=== PATIENT | female | born 1940 | race Caucasian/White ===

== ENCOUNTER 2016-11-07 06:56 | Inpatient (IN) | payer MEDICARE ==
[~2016-11-07 06:56] MED LIST: IV START KIT ONE; LACTATED RINGERS 1,000 ML ONE
[2016-11-07] MEDS ORDERED: CLONIDINE HCL 0.1 MG/24 HR (7 DAY PATCH) TD SCH (07:00)
[2016-11-07] MEDS ORDERED: CEFAZOLIN SODIUM 2 GRAM PREMIX 100 ML IV PRN (07:00)
[2016-11-07] MEDS ORDERED: TRAMADOL HCL 50 MG TABLET PO ONE (07:00)
[2016-11-07] MEDS ORDERED: TRANEXAMIC ACID 1,000 MG in SODIUM CHLORIDE 0.9% 100 ML IV PRN (07:00)
[2016-11-07] MEDS ORDERED: OXYCODONE HCL 10 MG TAB.SR PO ONE ×2 (07:00→07:48)
[2016-11-07] MEDS ORDERED: ONDANSETRON 4 MG/2ML 2 ML VIAL IV ONE (07:00)
[2016-11-07] MEDS ORDERED: POLYMYXIN B SULFATE 500,000 UNITS, BACITRACIN 25,000 UNITS in SODIUM CHLORIDE 3 L IRRIG... IR PRN (07:00)
[2016-11-07] MEDS ORDERED: FAMOTIDINE 20 MG TABLET PO ONE (07:00)
[2016-11-07] MEDS ORDERED: CELECOXIB 200 MG CAPSULE PO ONE (07:00)
[2016-11-07] MEDS ORDERED: GABAPENTIN 600 MG TABLET PO ONE (07:00)
[2016-11-07] MEDS ORDERED: BUPIVACAINE 0.25% (MDV) 20 ML in SODIUM CHLORIDE 0.9% FLUSH 20 ML IF PRN (07:00)
[2016-11-07] MEDS ORDERED: BUPIVACAINE 0.25% (MDV) 24 ML, MORPHINE SULFATE 8 MG, EPINEPHRINE 0.3 MG in SODIUM CHLO... IF PRN (07:00)
[2016-11-07] MEDS ORDERED: MIDAZOLAM HCL 1 MG/ML 2ML VIAL ONE (07:02)
[2016-11-07] MEDS ORDERED: PROPOFOL 20 ML IV ONE (07:03)
[2016-11-07] MEDS ORDERED: FENTANYL 100 MCG/2 ML VIAL ONE (07:03)
[2016-11-07] MEDS ORDERED: NALOXONE HCL 0.4 MG/ML VIAL IV PRN (07:37)
[2016-11-07] MEDS ORDERED: ONDANSETRON 4 MG/2ML 2 ML VIAL IV PRN ×2 (07:37→11:55)
[2016-11-07] MEDS ORDERED: MEPERIDINE 25 MG/ML SYRINGE IV PRN (07:37)
[2016-11-07] MEDS ORDERED: HYDROMORPHONE HCL 1 MG/ML SYRINGE IV PRN (07:37)
[2016-11-07] MEDS ORDERED: HYDRALAZINE HCL 20 MG/1 ML VIAL IV PRN (07:37)
[2016-11-07] MEDS ORDERED: ATROPINE SULFATE 0.4 MG/1 ML VIAL IV PRN (07:37)
[2016-11-07] MEDS ORDERED: LABETALOL HCL 5 MG/ML 20ML VIAL IV PRN (07:37)
[2016-11-07] MEDS ORDERED: FENTANYL 100 MCG/2 ML VIAL IV PRN (07:37)
[2016-11-07] MEDS ORDERED: PROMETHAZINE HCL 25 MG/ML VIAL IM PRN (07:37)
[2016-11-07] MEDS ORDERED: VANCOMYCIN HCL 2 G in SODIUM CHLORIDE 0.9% 500 ML IV ONE (07:45)
[2016-11-07] MEDS ORDERED: LACTATED RINGERS 1,000 ML IV SCH (07:45)
[2016-11-07] MEDS ORDERED: TRAMADOL HCL 50 MG TABLET ONE (07:48)
[2016-11-07] MEDS ORDERED: FAMOTIDINE 20 MG TABLET ONE (07:49)
[2016-11-07] MEDS ORDERED: CELECOXIB 200 MG CAPSULE ONE (07:49)
[2016-11-07] MEDS ORDERED: GABAPENTIN 600 MG TABLET ONE (07:49)
[2016-11-07] MEDS ORDERED: CLONIDINE HCL 0.1 MG/24 HR (7 DAY PATCH) TD ONE (07:49)
[2016-11-07] MEDS ORDERED: SPINAL PROCEDURAL TRAY 1 EACH ONE (08:03)
[2016-11-07 08:05] LABS: URINE BILIRUBIN NEGATIVE (NEGATIVE); URINE BLOOD NEGATIVE (NEGATIVE); URINE GLUCOSE (UA) NEGATIVE (NEGATIVE); URINE LEUKOCYTE ESTERASE 2+ (NEGATIVE); URINE NITRITE POSITIVE (NEGATIVE); URINE PROTEIN TRACE (NEGATIVE); URINE UROBILINOGEN NORMAL (0-1 mg/dl)
[2016-11-07 08:06] LABS: URINE APPEARANCE CLEAR; URINE COLOR YELLOW
[2016-11-07] MEDS ORDERED: PUMP TUBING ONE ×3 (08:06→13:16)
[2016-11-07 08:24] LABS: URINE BACTERIA 1+
--- NOTE | 2016-11-07 08:33 | HP ---
DATE OF CLINIC: 11/02/2016 CAR TORRES : 1940 PLANNED PROCEDURE: Left Total Hip Arthroplasty DATE OF PROCEDURE: November 07, 2016 SURGEON: Dr. Alex Cuadra PCP: Dr. Jyoti Santos HISTORY OF PRESENT ILLNESS Car Torres is a 76 year old female. * Medication list reviewed with patient allergy list reviewed with patient. 75-year-old female who has had difficulty over the last year with atraumatic left hip pain. She has weight-bearing related pain primarily in the groin as well as some radiation laterally into the thigh. She was previously seeing Atilio for this as well as Dr. Reilly. She also saw Dr. Fall in [place]. Prior radiographs from 03/04/16 show some mild degenerative changes and significant lower lumbar spondylosis. She had an MRI scan done 03/30/16 that is available for my review. It showed marrow edema within the left femoral head as well as a moderate left hip effusion. This was consistent with possible osteonecrosis. She had an intraarticular injection which "helped for a few weeks". This was done 05/18/16. Overall, her symptoms have continued to progress. Follow up radiographs from 09/06/16 show dramatic progression with femoral head collapse with superior femoral migration. She is using 4-6 hydrocodone per day. She has been using a walker. We discussed both operative and non-operative management and she has elected to proceed with surgery. She presents today preoperatively. She does have a remote history of uterine cancer as well as hypertension and hypothyroidism. She has not smoked for over 10 years. She does use alcohol "quite a bit". She has recently developed increased bilateral LE edema for which she has seen her PCP with addition of additional diuretic and diagnosis of venous insufficiency CURRENT MEDICATION * *Supplement Miscellaneous as directed uniflex prop extract 250mgvit D 2000 IU, 0 days, 0 refills * Calcium 600 MG Tablet once a day 0 days, 0 refills * Fish Oil 1200 MG Capsule 1 once a day 0 days, 0 refills * Furosemide 20 MG Tablet 1 once a day, 30 days, 1 refills * Glucosamine Maximum Strength 1500 MG Tablet once a day 0 days, 0 refills * Hydrocodone-Acetaminophen 5-325 MG Tablet four times a day as neededOkay to fill on 10/27/2016, 28 days, 0 refills * Omeprazole 20 MG Tablet Delayed Release 1 once a day, 30 days, 11 refills * Oscal 500/200 D-3 500-200 MG-UNIT Tablet once a day 0 days, 0 refills PAST MEDICAL/SURGICAL HISTORY Reported: Last pap smear date hysterectomy, Last mammogram date: 2008 WNL, MEI/BSO for uterine cancer 1999, she justn had pap smear with Dr. Kelly. She was told she needs another in 6 months. She had atyipcal cells, and Last colonoscopy date: 2009 [facility] WNL. Medical: Cholesterol problems. A history of cancer uterus, Thyroid Disorder, Hypertension, and Osteoporosis. Surgical / Procedural: Surgical / procedural history nose surgery Vein stripping 2011 tubal ligation 1957 and Eye Surgery cataracts January & February 2012. Anxiety. Surgical: * Appendectomy in her 40's * Hysterectomy 1999 SOCIAL HISTORY Social history unchanged. Behavioral: Caffeine use, former smoker smoking in 2002 at age 62 after about 40 years, and non-smoker quit smoking. Smoking status: Former smoker. Alcohol: Alcohol use Patient says, "quite a bit of drinking". Home Environment: Lives alone. 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 Marital: - as well as . ALLERGIES * Ibuprofen Reaction: Skin Rashes/Hives FAMILY HISTORY Father at age 58 heart attack Mother at age 83 heart disease Sister at age 75 after knee surgery exact reason unknown but she was obese Sister 1931 breast cancer, obese brother 1947 neuropathy brother 1942 brother 1936 healthy Paternal: Acute myocardial infarction Maternal: Coronary artery disease Paternal grandmother's: Diabetes mellitus Maternal grandmother's: Diabetes mellitus Sororal: Coronary artery disease Cancer - [facility] cancer REVIEW OF SYSTEMS Systemic: No fever and no recent weight change. Head: No head symptoms. Cardiovascular: No cardiovascular symptoms. Pulmonary: No pulmonary symptoms. Gastrointestinal: No gastrointestinal symptoms. Psychological: No psychological symptoms. Skin: No skin lesions and no rash. PHYSICAL FINDINGS * Vitals taken 11/02/2016 01:20 pm BP-Sitting L 144/89 mmHg 100 - 120/56 - 80 BP Cuff Size Regular Pulse Rate-Sitting 96 bpm 50 - 100 Respiration Rate 16 per min 18 - 26 Temp-Oral 97.8 F 96 - 101 Height 63.75 in 59 - 68 Weight 152 lbs 95 - 175 Body Mass Index 26.3 kg/m2 Body Surface Area 1.74 m2 Pain Level 10 Ears, Nose, Throat: * ENT: normal. Lungs: * Clear to auscultation. Cardiovascular: Heart Rate and Rhythm: * Normal. Abdomen: * Normal. Neurological: Motor: * Dominant Hand = Right Hand. Patient is a well-developed, well-nourished female no in acute distress, normal-appearing mood and affect. Patient has an obvious antalgic gait with a positive Trendelenburg. There is pelvic obliquity, right side high. Evaluation of the left hip girdle shows skin integrity to be intact with no wounds, rashes or lesions. She is tender laterally as well as anteriorly in the groin, NT in the sciatic notch. ROM is 90 degrees of flexion, 15 degrees of abduction with discomfort, 25 degrees ER with pain, 10 degrees IR with pain. Patient can adduct to the midline with groin pain and lacks 10 degrees from full extension. Thigh is soft and NT. No atrophy or asymmetry compared to the contralateral side. Relatively poor musculature. Cursory exam of the knee shows non-irritable motion. No focal periarticular tenderness. Calf is soft and NT. Distal light touch sensation and motor function are grossly intact and symmetric. She has 2+ pitting edema to mid leg bilaterally. Pulses are palpable. Sitting SLR is negative. Contralateral hip exam shows non-irritable motion. On standing she does have an obvious scoliosis with flattening of the lumbar lordosis. TESTS X-rays as above ASSESSMENT Avascular necrosis, left hip, with collapse and significant secondary degenerative changes. PREVIOUS TESTS * Test: URINALYSIS Report Date: 10/26/2016 GLUCOSE NEGATIVE PH,URINE 7.0 SPEC. GRAVITY 1.020 KETONE NEGATIVE NITRITE NEGATIVE BLOOD NEGATIVE BILIRUBIN NEGATIVE APPEARANCE CLEAR PROTEIN NEGATIVE COLOR DARK YELLOW LEUK ESTERASE TRACE UROBILINOGEN NORMAL * Test: URINALYSIS WITH MICROSCOPIC Report Date: 10/26/2016 EPITHELIAL CELL 7-10 WBC 1-3 BACTERIA RARE RBC 0 * Test: PROTHROMBIN TIME Report Date: 10/26/2016 PROTIME 9.8 s INR 0.93 * Test: PARTIAL THROMBOPLASTIN TIME Report Date: 10/26/2016 APTT 23.9 s Low * Test: CBC WITH DIFF Report Date: 10/26/2016 WBC 6.5 10*3/mL MCV 104.0 fL High RBC 3.78 10*6/uL Low NEUTROPHILS 72.9 % MCH 34.4 pg High MCHC 33.1 g/dL RDW 12.4 % PLATELET COUNT 290 10*3/mL IMM NEUT % 0.2 % IMM NEUT # 0.0 10*3/mL MONOCYTES 8.2 % BASOPHIL 0.5 % EOSINOPHIL 0.3 % Low HCT 39.3 % HGB 13.0 g/L LYMPHOCYTE 17.9 % ANC 4.7 10*3/mL * Test: COMPREHENSIVE METABOLIC PANEL Report Date: 10/26/2016 ALT/SGPT 29 U/L ALBUMIN 3.7 g/dL ALB/GLOB RATIO 1.2 BUN 11 mg/dL BUN/CREAT RATIO 18 CALCIUM 9.1 mg/dL GLUCOSE 100 mg/dL CREATININE 0.6 mg/dL SODIUM 137 meq/L POTASSIUM 4.0 meq/L CHLORIDE 98 meq/L CARBON DIOXIDE 32 meq/L High ANION GAP 11 meq/L TOT PROTEIN 6.8 g/dL GLOBULIN 3.1 g/dL BILI,TOTAL 0.6 mg/dL AST/SGOT 57 U/L High ALK PHOSPHATASE 97 U/L GFR 97 High * Test: MRSA SCREEN Report Date: 10/27/2016 MRSA SCREEN POSITIVE Abnormal * Test: MSSA SCREEN Report Date: 10/27/2016 MSSA SCREEN POSITIVE FOR STAPHYLOCOCCUS AUREUS Abnormal THERAPY * Patient fall risk screen positive. * Patient eligible for fall risk assessment. * Patient received fall risk assessment. PLAN * Unilateral primary osteoarthritis, left hip Physical Therapy: LEIGHANN Taylor [phone] * OTHER Mupirocin 2 % OINT, apply into each nostril two times a day (morning & night) for 5 days prior to surgery date. NEED TO START ON Nov 02, 2016, 5 days, 0 refills OxyCODONE HCl 5 MG TABS, 1or 2 tablets every 4 to 6 hours as needed-TO BE USED FOR AFTER SURGERY, 5 days, 0 refills TraMADol HCl 50 MG TABS, 1 po q 6 hours prn pain-TO BE USED FOR AFTER SURGERY, 5 days, 0 refills * Total hip replacement -Left Discussed with patient in detail the limitations, expectations as well as risks and possible complications of surgery including, but not limited to wound problems or infection, neurovascular injury, continued hip pain or dysfunction, postop instability including the possibility of dislocation and/or postop leg length discrepancy, and the possibility of prosthetic wear or failure over time that may require additional operative or non-operative treatment. Patient also realizes the perioperative risks including risks associated with anesthesia and would like to proceed. A full PAR conference was held, questions and concerns addressed and informed consent was obtained. Patient will be sent from my office for completion of the preoperative workup. Patient will use enteric coated aspirin postoperatively for DVT prophylaxis as per risk stratification protocol. Patient would like to perform their postop PT at [facility] (formerly [facility]) with total hip arthroplasty protocol. Postoperatively, her plan is to have her daughter come and stay with her for at least 2 weeks CARE TEAM Yung Kelly MD Obstetrics & Gynecology Liang Castorena MD Surgery MD Jyoti Gomez MD Internal Medicine Alli Fall MD Orthopaedic Surgery ADRIEL/sg
--- NOTE | 2016-11-07 11:36 | PCMBPN ---
Brief Post Op Note: Date of Procedure: 11/07/16 Preoperative Diagnosis: AVN with collapse and secondary DJD Postoperative Diagnosis: 1. [Same] Procedure: left JANIS Surgeon: Alex Cuadra MD Assist: Anshu (FAUSTO) Anesthesia: spinal (Francisco) Findings: AVN with collapse/osteopenia Condition: stable to PAR Complications: none IV Fluids: 1700 mLs of LR Urine Output: 150 mLs Estimated Blood Loss: 150 mLs Tourniquet Time: [N/A] Specimens: [N/A] Implants: Polar/R3 Drains: [N/A]
[2016-11-07] MEDS ORDERED: CALCIUM CARBONATE 500 MG TAB.CHEW PO PRN (11:55)
[2016-11-07 12:47] VITALS: BMI 26.0
[2016-11-07] MEDS ORDERED: PNEUMOCOCCAL 23-VAL P-SAC VAC 0.5 ML VIAL IM V ONE (12:48)
[2016-11-07] MEDS ORDERED: FLU VACC 2016-17 (65 YR+)/PF 180 MCG/0.5 ML SYRINGE IM V ONE (12:48)
--- NOTE | 2016-11-07 13:20 | RAD ---
PELVIS HISTORY: Postop left JANIS COMPARISONS: 09/06/2016 hip series FINDINGS: Single supine view of the pelvis illustrates postoperative change from left total hip arthroplasty. No fracture or dislocation. Hardware appears intact on this single view. Much of the upper pelvis is not visualized on the film. Soft tissue gas from recent surgery is noted. IMPRESSION: Satisfactory postoperative exam.
[2016-11-07] MEDS: D5 1/2NS with 20 mEq KCL 1,000 ML IV SCH ×2 (13:24→21:02)
[2016-11-07] MEDS: HYDROMORPHONE HCL 0.5 MG/0.5 ML SYRINGE IV PRN (15:43)
[2016-11-07] MEDS: ACETAMINOPHEN 500 MG TABLET PO SCH (17:50)
--- NOTE | 2016-11-07 19:34 | CONS ---
CAR COLVIN [id number] HOSPITALIST CONSULATION DATE OF ADMISSION: November 07, 2016 DATE OF CONSULTATION: November 07, 2016 PHYSICIAN REQUESTING CONSULTATION: Alex Cuadra M.D. REASON FOR CONSULTATION: For assistance in the perioperative management of the patient's medical problems. These medical problems include generalized osteoarthritis, ongoing alcohol abuse, mild glucose intolerance, venous insufficiency without ulcer, and chronic edema due to venous insufficiency. PROCEDURES PERFORMED DURING THE HOSPITALIZATION: Included a left total hip arthroplasty. The procedure was performed under spinal anesthesia without any perioperative complications. SUMMARY OF ADMISSION AND HOSPITAL COURSE: The patient is a 76-year-old female with medical problems as listed above who presented for an elective left hip arthroplasty after failing conservative measures for treatment of chronic pain associated with generalized osteoarthritis. REVIEW OF SYSTEMS: Negative for any recent fevers, chills, weakness, upper respiratory symptoms, cough, chest pain, shortness of breath, or palpitations. She denies any problems with abdominal pain, diarrhea or constipation. She denies headaches, fainting, blackouts or seizures. She denies any urinary complaints. Review of systems is otherwise negative. PAST MEDICAL HISTORY: 1. Negative for any recent hospitalizations. 2. She has had a history of some mild glucose intolerance managed with diet. 3. She has had a history of subclinical hypothyroidism also managed with diet. 4. Chronic pain associated with back pain and generalized osteoarthritis. 5. Hyperlipidemia managed with diet. 6. She has chronic lower extremity edema due to venous insufficiency. She was unable to successfully use compression stockings due to difficulty getting them on and was started on Lasix therapy about a month ago by her primary care provider. This was not very helpful. She reports that the compression stockings that she is wearing now have been very helpful, however. Unfortunately compliance has been difficult due to her arthritis. She is looking into assistive devices to help her. 7. She denies any history of any heart disease or lung disease. 8. She has a remote history of endometrial carcinoma in remission after surgery. 9. She has had some mild gastroesophageal reflux disease. PAST SURGICAL HISTORY: Significant for: 1. Hysterectomy in [place] in 2008. 2. She has had a prior appendectomy. 3. She had a vein stripping procedure performed by Dr. Castorena in [place], I believe in 2011. 4. Tubal ligation in 1957. 5. Bilateral cataract procedures in 2011. ALLERGIES: REPORTED TO: 1. IBUPROFEN. 2. FOSAMAX CAUSED DYSPEPTIC SIDE EFFECTS. CURRENT MEDICATIONS: These include: 1. Vitamin B complex with vitamin C once daily. 2. Prilosec 20 mg once daily. 3. Fish oil 1200 mg twice daily. 4. [place] 5/325 one every four hours as needed averaging about six a day. 5. Lasix 20 mg daily. 6. Move Free Ultra tablet one tablet daily. 7. Calcium carbonate 600 mg twice daily. 8. I believe she is taking a vitamin D supplement as well. FAMILY HISTORY: Is significant for a father who of a myocardial infarction at the age of 58. Her mother in her 80s of heart disease. SOCIAL HISTORY: Patient is and lives alone. She is a former smoker quitting in 2002 after about 40 pack-years. She does enjoy drinking wine and averages about six glasses of wine a night. Has done so for the last five years. She states she successfully quit drinking for about ten days in March without adverse effects. She has a daughter who is planning on staying with her in the postoperative period and is hoping to go home postoperative. While she is interested in cutting back in her alcohol use, she is not interested in quitting. Her primary care provider is Dr. Santos. PHYSICAL EXAMINATION: VITAL SIGNS: Vital signs show a temperature of 97.4, pulse 89, blood pressure 121/78, respirations 16, oxygen saturation are 100% on two liters. Body mass index is 26. Weight is 68.8 kilograms. GENERAL: This is a well developed, well nourished female in no acute distress. HEENT: Exam is unremarkable. CHEST: Lungs are clear to auscultation bilaterally. HEART: Reveals a regular rate and rhythm without a murmur. ABDOMEN: Soft, nontender, nondistended with positive bowel sounds. EXTREMITIES: Show a surgical dressing over the left hip which is left intact. She has trace to 1+ pedal edema. Pulses at the dorsalis pedis arteries are 2+ and equal bilaterally. NEUROLOGIC: Exam is nonfocal. PREOPERATIVE LABORATORY STUDIES: Included a positive methicillin resistant Staphylococcus aureus and methicillin sensitive Staphylococcus aureus screen. CBC done on October 26, 2016 showed a white count of 6.5, hemoglobin of 13, platelet count of 290,000. Coagulation profile was normal. Chemistry profile performed on October 26, 2016 showed a sodium 137, potassium 4.0, carbon dioxide 32, BUN 11, creatinine 0.6, glucose 100. AST slightly elevated at 57 with an ALT of 29, and total bilirubin of 0.6. Urinalysis performed today showed 1+ bacteria with 2+ leukocyte esterase, positive nitrite. Culture is pending. Preoperative culture was unremarkable. ELECTROCARDIOGRAM: Showed cardiomegaly without any acute abnormalities otherwise. I do not have a preoperative electrocardiogram on file. ASSESSMENT/PLAN: 1. Patient is status post left hip arthoplasty. We will defer to the orthopedic service for management of her postoperative care. Her goal is to return home with her daughter assisting her in her own home postoperative. The patient does have generalized osteoarthritis with chronic pain on chronic opioid therapy which could make pain management more challenging postoperatively. 2. Patient has ongoing alcohol abuse concerning for risk of alcohol withdrawal but successfully stopped drinking for ten days this summer. I am going to make alcohol available to her as desired to reduce the risk of alcohol withdrawal given the fact that she has no intention of quitting. 3. She does have a history of mild glucose intolerance. I do not anticipate any significant factors regarding this. 4. She has had a history of chronic venous insufficiency without ulcer and chronic edema. I think getting occupational therapy to help her find assistive devices to use compression stockings is worthwhile. 5. She has evidence of asymptomatic bacteruria. Has been treated with perioperative antibiotics and given the fact that she has a new total joint replacement, I will continue to cover her with Bactrim pending results of her urine culture. She will get one tablet of the double strength twice daily. 6. Hospitalist service will follow the patient in the postoperative period. She will return to the care of her primary care provider, Dr. Jyoti Santos, postoperative. cc: Jyoti Santos M.D. Alex Cuadra M.D.
--- NOTE | 2016-11-07 19:38 | RAD ---
HIP LEFT 1 VIEW COMPARISON: Pelvis and left hip 09/06/2016 HISTORY: Medially postop left total hip arthroplasty per FINDINGS: Views: AP view of the left hip. Bones: Normal Joints: Satisfactory appearance of left total hip uncemented arthroplasty. Soft tissues: Normal IMPRESSION: Satisfactory appearance of the left total hip uncemented arthroplasty.
[2016-11-07] MEDS: SULFAMETHOXAZOLE 800 MG/TRIMETHOPRIM 160 MG TABLET PO SCH (21:02)
[2016-11-07] MEDS: TRAMADOL HCL 50 MG TABLET PO PRN (21:02)
[2016-11-07] MEDS: ASCORBIC ACID 500 MG TABLET PO SCH (21:02)
[2016-11-07] MEDS: DOCUSATE SODIUM 100 MG CAPSULE PO SCH (21:02)
[2016-11-08] MEDS: ACETAMINOPHEN 500 MG TABLET PO SCH ×4 (00:02→17:29)
[2016-11-08] MEDS: OXYCODONE HCL 5 MG TABLET PO PRN ×4 (04:03→21:10)
[2016-11-08] MEDS: D5 1/2NS with 20 mEq KCL 1,000 ML IV SCH (04:04)
[2016-11-08] MEDS: HYDROMORPHONE HCL 0.5 MG/0.5 ML SYRINGE IV PRN ×2 (04:06→10:35)
[2016-11-08 06:57] LABS: HEMATOCRIT 31.3 % (37.0-47.0); HEMOGLOBIN 10.2 gm/l (12.0-16.0); MEAN CELL VOLUME 104.7 fl (81.0-99.0); MEAN CORPUSCULAR HEMOGLOBIN 34.1 pg (27.0-31.0); MEAN CORPUSCULAR HGB CONC 32.6 g/dl (33.0-37.0); RED CELL DISTRIBUTION WIDTH 12.6 % (11.5-14.5)
[2016-11-08] MEDS ORDERED: REMOVE PATCH 1 EACH UNIT TD SCH (07:00)
[2016-11-08 07:19] LABS: CALCIUM 7.8 mg/dL (8.6-10.3)
--- NOTE | 2016-11-08 07:35 | PDOC43 ---
- Subjective Findings: comfortable night- 'slept first time in months' Subjective: Reports Pain Tolerable, Denies Shortness of Breath, Denies Nausea, Denies Vomiting, Denies Fever - Objective Vital Signs Temperature 98.3 F 11/08/16 04:00 Pulse Rate 80 11/08/16 04:00 Respiratory Rate 20 11/08/16 04:00 Blood Pressure 131/74 11/08/16 04:00 O2 Saturation by Pulse Oximetry 99 11/08/16 04:00 Oxygen Delivery Method Nasal Cannula Oxygen Flow Rate 2 Laboratory 11/08/16 06:10 11/08/16 06:10 11/08/16 06:10 RBC 2.99 L MCV 104.7 H MCH 34.1 H MCHC 32.6 L BUN 6 L Estimated GFR 120 H Calcium 7.8 L Active Medication Orders Category Date Time Status Acetaminophen [Tylenol] Med 11/07/16 18:00 Active 1,000 mg PO Q6H Ascorbic Acid [Vitamin C] Med 11/07/16 21:00 Active 500 mg PO BID Aspirin (Enteric Coated) [Ecotrin] Med 11/08/16 09:00 Active 325 mg PO DAILY Bisacodyl [Dulcolax] Med 11/10/16 11:55 Active 10 mg NM DAILY PRN Calcium Carbonate [Tums] Med 11/07/16 11:55 Active 1,000 - 2,000 mg PO Q2H PRN D5 1/2NS with 20 mEq KCL [D51/2NS with 20 mEq KCL] 1, Med 11/07/16 12:00 Active 000 ml IV 125 mls/hr Docusate Sodium [Colace] Med 11/07/16 21:00 Active 100 mg PO BID Furosemide [Lasix] Med 11/08/16 09:00 Active 20 mg PO QAM Hydromorphone HCl [Dilaudid] Med 11/07/16 11:55 Active 0.5 mg IV Q1H PRN Magnesium Hydroxide [Milk of Magnesia] Med 11/08/16 11:55 Active 30 ml PO DAILY PRN Multivitamins [One-A-Day] Med 11/08/16 09:00 Active 1 tab PO DAILY Ondansetron 4 mg/2ml Vial [Zofran] Med 11/07/16 11:55 Active 4 - 6 mg IV Q6H PRN Oxycodone HCl [Roxicodone] Med 11/07/16 11:55 Active 5 - 10 mg PO Q4H PRN Pantoprazole Sodium [Protonix] Med 11/08/16 09:00 Active 40 mg PO DAILY Remove Patch Med 11/08/16 11:55 Once 1 each TD X1 ONE Sodium Chloride 0.9% Flush [Normal Saline 10ml Flush] Med 11/07/16 11:55 Active 10 - 50 ml IV PRN PRN Sodium Chloride 0.9% Flush [Normal Saline 10ml Flush] Med 11/07/16 17:00 Active 10 ml IV Q8HR Sulfamethoxazole/Trimethoprim [Septra Ds] Med 11/07/16 21:00 Active 1 each PO BID Tramadol HCl [Ultram] Med 11/07/16 18:30 Active 50 mg PO Q6H PRN Intake and Output 11/06/16 11/07/16 11/08/16 23:59 23:59 23:59 Intake Total 918 1741 Output Total 400 1950 Balance 518 -209 General: Afebrile HEENT: Atraumatic Lungs: Normal Air Movement Cardiovascular: Regular Rate and Rhythm Abdomen: Soft Skin: Normal Color, Warm, Dry, Intact Neurological: Alert, Oriented x 4 Psych/Mental Status: Normal Affect, Normal Mood - Left Lower Extremity Incision: Dressing Clean/Dry/Intact, Other (thigh soft/NT), No Drainage Motor: Extensor Hallucis Longus: 5/5, Tibialis Anterior: 5/5, Gastrocnemius: 5/5 , Peroneals: 5/5 Gross Sensation to Light Touch: Present: Deep Peroneal Nerve, Superficial Peroneal Nerve, Medial Plantar Nerve, Lateral Plantar Nerve Capillary Refill: < 3 Seconds Motion: gentle AA ROM well tolerated - Problems (1) Status post total replacement of left hip Status: Acute Assessment/Plan: doing well POD#1 left JANIS 1. Physical Therapy: per protocol. May have some slower progress given preop shortening from AVN and significant preop dysfunction state 2. Pain Control: very good with protocol 3. DVT Prophylaxis: ECASA. Has Hx of NSAID intolerance with pruritis/rash. Will follow. Discussed with patient 4. Disposition: Will follow- expect probable D/C home tomorrow with daughter 5. Medical Issues: stable
[2016-11-08] MEDS: MULTIVITAMINS 1 TAB TABLET PO SCH (08:53)
[2016-11-08] MEDS: ASPIRIN (ENTERIC COATED) 325 MG TABLET.EC PO SCH (08:53)
[2016-11-08] MEDS: PANTOPRAZOLE 40 MG TABLET DR PO SCH (08:53)
[2016-11-08] MEDS: DOCUSATE SODIUM 100 MG CAPSULE PO SCH ×2 (08:53→21:11)
[2016-11-08] MEDS: SULFAMETHOXAZOLE 800 MG/TRIMETHOPRIM 160 MG TABLET PO SCH ×2 (08:54→21:11)
[2016-11-08] MEDS: ASCORBIC ACID 500 MG TABLET PO SCH ×2 (08:54→21:11)
[2016-11-08] MEDS: FUROSEMIDE 20 MG TABLET PO SCH (08:54)
[2016-11-08] MEDS: TRAMADOL HCL 50 MG TABLET PO PRN (10:35)
[2016-11-08] MEDS ORDERED: REMOVE PATCH 1 EACH UNIT TD ONE (11:55)
[2016-11-08] MEDS ORDERED: MAGNESIUM HYDROXIDE 30 ML UDCUP PO PRN (11:55)
[2016-11-08] MEDS ORDERED: SULFAMETHOXAZOLE 800 MG/TRIMETHOPRIM 160 MG TABLET PO SCH (13:00)
--- NOTE | 2016-11-08 15:24 | PDOC43 ---
- Subjective Chief Complaint: LTHA Patient working with therapy, no concerns. Her leg swelling is improved after surgery Subjective: Reports Pain Tolerable, Reports Tolerating Diet Well, Reports Adequate Oral Intake, Reports Flatus, Reports Urinating Without Difficulty, Denies Bowel Movement, Denies Shortness of Breath, Denies Cough, Denies Chest Pain, Denies Abdominal Pain, Denies Nausea - Objective Vital Signs Temperature 98.3 F 11/08/16 08:00 Pulse Rate 95 11/08/16 11:45 Respiratory Rate 18 11/08/16 08:00 Blood Pressure 122/66 11/08/16 11:45 O2 Saturation by Pulse Oximetry 94 11/08/16 11:45 Oxygen Delivery Method Room Air Oxygen Flow Rate 0 Intake and Output 11/06/16 11/07/16 11/08/16 23:59 23:59 23:59 Intake Total 918 2358 Output Total 400 3550 Balance 518 -1192 General: Alert, Oriented x3, Cooperative, No Acute Distress HEENT: Atraumatic, EOMI, Mucous membr. moist/pink Lungs: Normal Air Movement, Other (crackles right base) Cardiovascular: Regular Rate and Rhythm, Normal S1, Normal S2 Abdomen: Soft, Non-Distended, No Rigid, No Tenderness, No Rebounding Extremities: Tenderness, No Cyanosis, No Edema Neurological: Normal Speech Psych/Mental Status: Normal Mood Laboratory 11/08/16 06:10 11/08/16 06:10 11/08/16 06:10 RBC 2.99 L MCV 104.7 H MCH 34.1 H MCHC 32.6 L BUN 6 L Estimated GFR 120 H Calcium 7.8 L Current Medications: Current meds reviewed in EMR. - Problems: Assessment/Plan (1) Status post total replacement of left hip Status: Acute Assessment/Plan: Management per orthopedics (2) Chronic pain Qualifiers: Chronic pain type: chronic pain syndrome Qualifier Code: (G89.4) Chronic pain syndrome Status: Chronic Assessment/Plan: complicates post-op pain management. She was using wine to cope with her symptoms but has since stopped for surgery and she says she no longer needs it. Last drink 3 days ago. Suffers from OA (3) Edema, lower extremity Qualifiers: Laterality: bilateral Qualifier Code: (R60.0) Localized edema Status: Chronic Assessment/Plan: Improved with compression hose. 2nd to chronic venous insufficiency (4) GERD without esophagitis Status: Chronic Assessment/Plan: stable (5) Alcohol abuse Status: Chronic Assessment/Plan: Prior use to cope with pain, was drinking 8 glasses of wine on average a night. Last drink several days ago. She has never stopped drinking before but believes that withdrawal will not be a problem. Will monitor with TRISH
[2016-11-08] MEDS ORDERED: LORAZEPAM 2 MG/ML 1ML SDV IV PRN (15:25)
[2016-11-08] MEDS ORDERED: LORAZEPAM 2 MG/ML 1ML SDV IM PRN (15:25)
[2016-11-08] MEDS: THIAMINE HCL 100 MG TABLET PO SCH (15:40)
[2016-11-08] MEDS: FOLIC ACID 1 MG TABLET PO SCH (15:41)
[2016-11-09] MEDS: ACETAMINOPHEN 500 MG TABLET PO SCH ×2 (00:17→05:38)
[2016-11-09] MEDS: OXYCODONE HCL 5 MG TABLET PO PRN ×2 (05:38→10:13)
[2016-11-09 06:21] LABS: HEMATOCRIT 31.1 % (37.0-47.0); HEMOGLOBIN 10.2 gm/l (12.0-16.0)
[2016-11-09] MEDS: SULFAMETHOXAZOLE 800 MG/TRIMETHOPRIM 160 MG TABLET PO SCH (08:17)
[2016-11-09] MEDS: ASCORBIC ACID 500 MG TABLET PO SCH (08:18)
[2016-11-09] MEDS: PANTOPRAZOLE 40 MG TABLET DR PO SCH (08:18)
[2016-11-09] MEDS: THIAMINE HCL 100 MG TABLET PO SCH (08:18)
[2016-11-09] MEDS: FUROSEMIDE 20 MG TABLET PO SCH (08:18)
[2016-11-09] MEDS: MULTIVITAMINS 1 TAB TABLET PO SCH (08:19)
[2016-11-09] MEDS: DOCUSATE SODIUM 100 MG CAPSULE PO SCH (08:19)
[2016-11-09] MEDS: FOLIC ACID 1 MG TABLET PO SCH (08:19)
[2016-11-09] MEDS: ASPIRIN (ENTERIC COATED) 325 MG TABLET.EC PO SCH (08:19)
--- NOTE | 2016-11-09 09:31 | PDOC43 ---
- Subjective Findings: Ortho POD 2 L JANIS Patient awake, A and O times 4 this am and in good spirits. No present c/o. Pain is well controlled. Denies CP/SOB/NV. Taking a regular diet and positive flatus. Denies CP/SOB/NV. Good progress with ambulatory PT on post-op day one. Patient's only concern is her daughter being able to drive in the snow and get her home today. - Objective Vital Signs Temperature 98.0 F 11/09/16 07:06 Pulse Rate 86 11/09/16 07:06 Respiratory Rate 16 11/09/16 07:06 Blood Pressure 106/48 11/09/16 07:06 O2 Saturation by Pulse Oximetry 91 11/09/16 07:06 Oxygen Delivery Method Room Air Oxygen Flow Rate 92 Laboratory 11/09/16 05:30 11/08/16 06:10 Active Medication Orders Category Date Time Status Acetaminophen [Tylenol] Med 11/07/16 18:00 Active 1,000 mg PO Q6H Ascorbic Acid [Vitamin C] Med 11/07/16 21:00 Active 500 mg PO BID Aspirin (Enteric Coated) [Ecotrin] Med 11/08/16 09:00 Active 325 mg PO DAILY Bisacodyl [Dulcolax] Med 11/10/16 11:55 Active 10 mg LA DAILY PRN Calcium Carbonate [Tums] Med 11/07/16 11:55 Active 1,000 - 2,000 mg PO Q2H PRN Docusate Sodium [Colace] Med 11/07/16 21:00 Active 100 mg PO BID Folic Acid Med 11/08/16 15:30 Active 1 mg PO DAILY Furosemide [Lasix] Med 11/08/16 09:00 Active 20 mg PO QAM Hydromorphone HCl [Dilaudid] Med 11/07/16 11:55 Active 0.5 mg IV Q1H PRN Lorazepam [Ativan] Med 11/08/16 15:25 Active 2 mg IM Q5M PRN Lorazepam [Ativan] Med 11/08/16 15:25 Active See Protocol IV PRN PRN Magnesium Hydroxide [Milk of Magnesia] Med 11/08/16 11:55 Active 30 ml PO DAILY PRN Multivitamins [One-A-Day] Med 11/08/16 09:00 Active 1 tab PO DAILY Ondansetron 4 mg/2ml Vial [Zofran] Med 11/07/16 11:55 Active 4 - 6 mg IV Q6H PRN Oxycodone HCl [Roxicodone] Med 11/07/16 11:55 Active 5 - 10 mg PO Q4H PRN Pantoprazole Sodium [Protonix] Med 11/08/16 09:00 Active 40 mg PO DAILY Sodium Chloride 0.9% Flush [Normal Saline 10ml Flush] Med 11/07/16 11:55 Active 10 - 50 ml IV PRN PRN Sodium Chloride 0.9% Flush [Normal Saline 10ml Flush] Med 11/07/16 17:00 Active 10 ml IV Q8HR Sulfamethoxazole/Trimethoprim [Septra Ds] Med 11/07/16 21:00 Active 1 each PO BID Thiamine HCl Med 11/08/16 15:30 Active 100 mg PO DAILY Tramadol HCl [Ultram] Med 11/07/16 18:30 Active 50 mg PO Q6H PRN Intake and Output 11/07/16 11/08/16 11/09/16 23:59 23:59 23:59 Intake Total 918 3158 600 Output Total 400 3700 2500 Balance 327 -375 -2129 Neurological: No Normal Gait (ambulating with a walker post L JANIS) Peripheral Pulses: Left Posterior Tibialis: 1+, Left Dorsalis Pedis: 1+ - Left Lower Extremity Incision: Well Approximated (with a sub Q closure, skin glue and steri's. Thigh and calf SNT. Minimal thigh edema.), No Dressing Saturated, No Shadow Drainage, No Drainage, No Erythema, No Rash Motor: Extensor Hallucis Longus: 5/5, Tibialis Anterior: 5/5, Gastrocnemius: 4/5 , Peroneals: 5/5, Quadriceps: 4/5 Gross Sensation to Light Touch: Present: Deep Peroneal Nerve, Superficial Peroneal Nerve, Medial Plantar Nerve, Lateral Plantar Nerve, Sural Nerve, Saphenous Nerve Motion: AROM R hip: Flexion to 60, Abduction to 20 with gravity assist, SLR with AA. Ankle Full AROM. - Problems (1) Status post total replacement of left hip Status: Acute Assessment/Plan: doing well POD#2 Left JANIS 1. Continue: Physical Therapy: per protocol. May have some slower progress given preop shortening from AVN and significant preop dysfunction state 2. Continue: Pain Control: very good with protocol 3. Continue: DVT Prophylaxis: ECASA. Has Hx of NSAID intolerance with pruritis /rash. Presently asymptomatic 4. Disposition: Doing well, likely discharge home today with daughter if weather cooperates with driving. 5. Medical Issues: stable 6. Follow-up with Dr. Cuadra as scheduled.
--- NOTE | 2016-11-09 09:51 | PDOC43 ---
- Subjective Chief Complaint: LTHA Subjective: Reports Pain Tolerable, Reports Tolerating Diet Well, Denies Fever - Objective Vital Signs Temperature 98.0 F 11/09/16 07:06 Pulse Rate 86 11/09/16 07:06 Respiratory Rate 16 11/09/16 07:06 Blood Pressure 106/48 11/09/16 07:06 O2 Saturation by Pulse Oximetry 91 11/09/16 07:06 Oxygen Delivery Method Room Air Oxygen Flow Rate 92 Intake and Output 11/08/16 11/09/16 11/10/16 06:59 06:59 06:59 Intake Total 2659 2016 Output Total 2350 3950 300 Balance 309 -8058 -300 General: Alert, Oriented x3, Cooperative, No Acute Distress HEENT: Mucous membr. moist/pink Lungs: Clear to Auscultation Bilaterally Cardiovascular: Regular Rate and Rhythm Abdomen: Soft, Normal Bowel Sounds, Non-Distended, No Tenderness Extremities: No Edema Skin: Warm, Dry, Intact Laboratory 11/09/16 05:30 11/08/16 06:10 Current Medications: Current meds reviewed in EMR. - Problems: Assessment/Plan (1) UTI (urinary tract infection), bacterial Status: Acute Assessment/Plan: Due to Klebsiella Pneumonia and streptococcus species sens to Bactrim-will Rx 5 days more (2) Status post total replacement of left hip Status: Acute Assessment/Plan: Management per orthopedics (3) Alcohol abuse Status: Chronic Assessment/Plan: Prior use to cope with pain, was drinking 8 glasses of wine on average a night. Last drink several days ago. She has never stopped drinking before but believes that withdrawal will not be a problem. No evidence of alcohol withdrawal (4) Chronic pain Qualifiers: Chronic pain type: chronic pain syndrome Qualifier Code: (G89.4) Chronic pain syndrome Status: Chronic Assessment/Plan: complicates post-op pain management. She was using wine to cope with her symptoms but has since stopped for surgery and she says she no longer needs it. Last drink 3 days ago. Suffers from OA (5) Edema, lower extremity Qualifiers: Laterality: bilateral Qualifier Code: (R60.0) Localized edema Status: Chronic Assessment/Plan: Improved with compression hose. 2nd to chronic venous insufficiency (6) GERD without esophagitis Status: Chronic Assessment/Plan: stable VTE Prophylaxis: mech measures and aspirin(no evidence of allergic reaction despite Hx Disposition: Home today
[2016-11-09 11:19] VITALS: BP 107/61
--- NOTE | 2016-11-10 09:30 | OP ---
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 SURGEON: Venecia ASSIST: Anshu STATON) ANESTHESIA: Spinal per Francisco EBL: 150 cc URINE OUTPUT: 150 cc IVF REPLACEMENT: Per anesthesia, 1.7 liters crystalloid DRAINS: None COMPLICATIONS: None HISTORY: Briefly, patient is a 76-year-old female with clinical and radiographic evidence most consistent with rapidly progressive AVN with collapse and secondary degenerative changes of their left hip. They have failed traditional nonoperative measures and at this point desire elective surgical management. For additional details, refer to previously dictated Preoperative History and Physical Exam. A full PAR conference was held, questions and concerns were addressed, and informed consent was obtained. FINDINGS: Avascular necrosis, obvious femoral head deformity with significant delamination and collapse superiorly. Proximal marrow had some fatty infiltration. Fairly significant periarticular osteopenia on the acetabular side as well. She was quite tight on evaluation, particularly in extension even under anesthesia with some overall obvious shortening. PROCEDURE: The patient was taken to the operating room and after previously described anesthesia was placed in the lateral decubitus position on the operating room table and held with the peg board positioner. Marley prominences were well padded and an axillary roll was placed. The left hip girdle and lower extremity were then prepped and draped out in the usual sterile fashion. Preoperative antibiotics were given empirically. Intraoperative DVT prophylaxis consisted of bilateral mechanical foot pumps. Personal filtration suits were used as was a closed room environment. An oblique ten centimeter incision was made using the minimally invasive guide posterior and extending slightly proximal to the greater trochanter. We dissected through subcutaneous tissue down to the gluteus fascia. Electrocautery was used at this point and throughout the duration of the case to establish and maintain hemostasis. The gluteus fascia was incised in line with the incision and the muscle fibers split to expose the underlying bursal tissue. Tranexamic acid was infiltrated over 10 minutes prior to incision, 1 gram dose per protocol. A similar 2nd dose was given at initiation of closure. A deep self retaining field retractor was placed. The short external rotators were identified, the piriformis was tagged and reflected with the underlying capsule which was reflected in a U fashion off the femoral neck and tagged as well for later repair. Release of the capsule allowed for dislocation of the hip and the femoral head was brought up into the operative field. A femoral neck cut was made proximal to the lesser trochanter as per our preoperative templating. We then translated the femur anteriorly exposing the acetabulum. The remaining labrum was excised circumferentially. We reamed to the true acetabular floor and then incrementally up to a 51 as per our preoperative plan at which point we noted circumferential bleeding cancellous bone. This was trialed at approximately 45 degrees of abduction and 20 degrees of anteversion with good fit and stability. We then impacted the true acetabular component which was seated completely. An apical hole cover was placed and we impacted the neutral crosslinked polyethylene liner. Attention was then directed back to the femur. The remaining soft tissue was cleared from the piriformis fossa and we use a rongeur and box osteotome to enter the proximal femoral canal followed by the canal seeker and then the broach only system up to a size 4 matching the patient's elim ira anteversion with good proximal fill and rotational stability. This was trialed with a -3, still quite tight given her preop deformity. I therefore revised the femoral neck cut taking an additional approximate 5mm. We then broached up to a 4 again and trialed again with a -3 with good stability to 70 degrees of internal rotation in 90 degrees of flexion with ability to fully extend although still slightly tight, which is not surprising given her preop deformity and no instability on external rotation. There was reasonable soft tissue balance and improvement in leg length discrepancy. Satisfied, trial components were removed and we impacted the true femoral stem. The trunnion was then cleaned and dried and the femoral head was impacted. The hip was then reduced with stability as previously discussed. Satisfied, we turned our attention to closure. The wound was copiously irrigated with antibiotic pulsatile lavage. We then advanced the capsule and piriformis to the gluteus medius insertion. The gluteus fascia was closed with a running number two PDO StratoFix suture. 1st periarticular injection was given at this point per protocol into the capsule, synovium, gluteus and external rotators. The subcutaneous tissue was closed with interrupted 2-0 and 3-0 Vicryl and the skin was closed with a running 4-0 Monocryl stitch with Indermil and Steri-Strips. The 2nd periarticular injection was done at this point per protocol into the subcutaneous tissue superiorly and anteriorly to the incision. A sterile hip dressing was then applied, the patient was returned to the supine position, transferred to their hospital bed, and sent to the postoperative recovery room in stable condition. They tolerated the procedure well. Sponge, instrument, and needle count were correct. ADRIEL/mrw CC: Jyoti Santos MD PT [facility]
[2016-11-10] MEDS ORDERED: BISACODYL 10 MG SUP PR PRN (11:55)
--- NOTE | 2016-11-11 11:45 | DS ---
Annalise COLVIN [id number] : 1940 DATE OF ADMISSION: November 07, 2016 DATE OF DISCHARGE: November 09, 2016 DISCHARGE DIAGNOSES: Left hip degenerative joint disease. HOSPITAL PROCEDURES: Left total hip arthroplasty. SURGEON: Alex Cuadra M.D. BRIEF HISTORY: Patient is a 76-year-old female with both clinical and radiographic evidence of advanced DJD of their left hip. For the full history please see the chart note. BRIEF HOSPITAL COURSE: Patient was admitted on November 07, 2016 Dr. Alex Cuadra performed a left total hip arthroplasty. Patient was moved to the recovery room in stable condition. They were given 4 doses of antibiotic for empiric coverage. DVT prophylaxis consisted of aspirin, pneumatic compression CM hose and mobility. PT was instituted postop day 1 with left total hip arthroplasty protocol, weightbearing as tolerated. Their incision site remained benign, their vital signs remained stable and they remained neurally and vascularly intact through the duration of the stay. They were discharged home postop day, 2 to continue outpatient PT at [facility] with left total hip arthroplasty protocol, posterior hip precautions weightbearing as tolerated keeping total hip precautions in mind. Dr. Antonio Osei was consulted to manage the perioperative medical comorbidities for this consultation, please see the chart note. DISCHARGE INSTRUCTIONS: 1. Keep the wound site clean and dry, change dressing daily or as needed. 2. Continue the use of CM hose bilaterally. 3. Ice pack over the wound site prn. 4. Continue total hip precautions. 5. Outpatient PT at [facility] with left total hip arthroplasty protocol, posterior hip precautions weightbearing as tolerated. MEDICATIONS: 1. Patient is to resume normal preop medications. 2. Anti-coagulation will be with aspirin 325 mg daily for six weeks. 3. Pain management will be with Oxycodone, 5mg 1-2 every 4 hours prn for breakthrough pain, and Tramadol, 50mg every 6 hours prn pain. 4. Patient was also advised on utilization of a multi-vitamin with mineral daily as well as Vitamin C, 500mg, daily for 1 month. 5. Patient encouraged to take an iron supplement in the form of ferrous sulfate, 325mg daily for 4 weeks. 6. Colace, 100mg, b.i.d. until regular bowel movement. FOLLOW-UP: Please return to the clinic as scheduled for your first scheduled postop check. Prior to that point in time please call with any questions or concerns. Job [id number] CC: [place] Lupe Santos M.D. [facility] in [place]
== END 2016-11-09 12:59 | disposition home or self-care (01) | DRG 470 ==
LOC: OR 06:56 → MS 12:33
PROVIDERS: ADMIT Orthopaedic Surgery; ATTEND Orthopaedic Surgery
PROC: 0SRB04A Replacement of Left Hip Joint with Ceramic on Polyethylene Synthetic Substitute, Uncemented, Open Approach (ICD-10-PCS; principal; 2016-11-07)
DX: M87.852 Other osteonecrosis, left femur (principal); N39.0 Urinary tract infection, site not specified; M89.752 Major osseous defect, left pelvic region and thigh; M15.9 Polyosteoarthritis, unspecified; M85.88 Other specified disorders of bone density and structure, other site; G89.4 Chronic pain syndrome; I87.2 Venous insufficiency (chronic) (peripheral); K21.9 Gastro-esophageal reflux disease without esophagitis; F10.10 Alcohol abuse, uncomplicated; B96.1 Klebsiella pneumoniae [K. pneumoniae] as the cause of diseases classified elsewhere; B95.5 Unspecified streptococcus as the cause of diseases classified elsewhere; Z88.6 Allergy status to analgesic agent; Z87.891 Personal history of nicotine dependence; Z22.321 Carrier or suspected carrier of Methicillin susceptible Staphylococcus aureus; Z22.322 Carrier or suspected carrier of Methicillin resistant Staphylococcus aureus; R73.09 Other abnormal glucose; E78.5 Hyperlipidemia, unspecified; M54.9 Dorsalgia, unspecified; E02 Subclinical iodine-deficiency hypothyroidism